=== PATIENT | male | born 1980 ===

== ENCOUNTER 2022-05-14 05:59 | Day surgery (SDC) | payer BC, OTHER ==
[2022-05-12 11:51] LABS: Absolute Lymphocytes (CBC) 2.1 K/uL (0.7-4.9); Hematocrit 48.2 % (39.6-49.0); Lymphocytes % 31.9 % (15.3-44.8); MCV 92.6 fL (80-100); MPV 8.5 fL (7.6-11.3)
[2022-05-12 12:06] LABS: Potassium 4.4 mmol/L (3.5-5.1)
[2022-05-12 12:11] LABS: SARS-CoV-2 Antigen Rapid Res Negative (Negative)
[2022-05-14] MEDS ORDERED: CEFAZOLIN SODIUM 1 GM/VIAL ONE (06:19)
[2022-05-14] MEDS ORDERED: NA CHLORIDE 0.9% 50 ML ONE (06:19)
[2022-05-14] MEDS: Ringers Lactate 1,000 ML IV ONE (06:30)
[2022-05-14] MEDS ORDERED: ACETAMINOPHEN 500 MG TAB ONE (06:32)
[2022-05-14] MEDS ORDERED: CELECOXIB 100 MG CAPSULE ONE (06:32)
[2022-05-14] MEDS ORDERED: propofoL 200 MG/20 ML VIAL IV ONE ×2 (07:03→07:16)
[2022-05-14] MEDS ORDERED: MIDAZOLAM HCL 2 MG/2 ML INJ ONE (07:03)
[2022-05-14] MEDS ORDERED: FENTANYL CITR 100 MCG/2 ML ONE (07:03)
[2022-05-14] MEDS ORDERED: LIDOCAINE 2% MPF 5 ML VIAL ONE (07:03)
[2022-05-14] MEDS ORDERED: ONDANSETRON 4 MG/2 ML VIAL ONE (07:03)
[2022-05-14] MEDS ORDERED: dexAMETHasone 10 MG/ML VIAL ONE (07:25)
[2022-05-14 08:10] VITALS: O2SAT 100
[2022-05-14] MEDS ORDERED: HYDROCODONE/APAP 7.5/325 MG TAB ONE (08:50)
[2022-05-14 08:52] VITALS: BP 131/87; TEMP 97.6
--- NOTE | 2022-05-14 09:26 | OP ---
Date of Procedure: 05/14/2022 Surgeon: Jacques Allen MD Preoperative Diagnosis: Left carpal tunnel syndrome with left third trigger digit. Postoperative Diagnosis: Left carpal tunnel syndrome with left third trigger digit. Procedure: Left open carpal tunnel release with left open trigger digit release of the third digit. Estimated Blood Loss: Less than 3 cc. Complications: No complications. Pathology: No pathology specimen sent. Indications For Operation: Mr. Ye arrived to see me with severe numbness, tingling, and pain rel ated to his hand. He also exhibited a triggering digit of the third finger. Risks, benefits, and al ternatives of different methods of treating this have been discussed with him and he does have NCVs w hich support carpal tunnel syndrome and he agrees to proceed. Description Of Procedure: Patient was taken to the operating room and placed in the supine position. General anesthesia was obtained by staff. Following this, a well-padded tourniquet was placed on s uperior left arm. The left upper extremity was then prepped and draped in the usual sterile fashion for procedure. Following this, the arm was then elevated, but not exsanguinated. Tourniquet was cage sed. Attention was first turned to the third trigger digit where slightly distal to the distal white r crease, a transverse incision made carefully through skin. Only meticulous hemostasis being mainta ined using bipolar electrocautery. This was then spread gently bluntly until the A1 karishma was ident ified. This was then divided with good visualization of the underlying tendon. It was then progress ed from proximal to distal until no constricting bands. Then, distal to proximal until no constricti ng bands. This was double-checked using a mosquito and the finger was brought through full range of motion with no sign of triggering or abnormal tendon motion. After this incision was closed, attenti on was then turned to the carpal tunnel. A standard incision was made, which was parallel to the the mandeep crease with slight ulnar deviation at the wrist crease. This was taken down carefully through sk in, only meticulous hemostasis being maintained using Bovie electrocautery. This leads to the palmar fascia, which was divided longitudinally. Any obstructions over the transverse carpal ligament were then swept to the side and a small vijaya was made in the transverse carpal ligament. The underlying median nerve was identified and this was then divided in a proximal to distal direction until there w ere no constricting bands and then a distal to proximal direction until there were no constricting ba nds including a significant amount of volar forearm fascia. At no time were any sharp instruments pl aced outside the direct operative field. This was then irrigated and closed. Patient was placed in a well-padded sterile dressing, awakened to the recovery room in good condition. No complications. /LUCY Voice ID: [id number] Report ID: [id number]
== END 2022-05-14 09:40 | disposition home or self-care (01) ==
LOC: PRE 05:59
PROVIDERS: ATTEND Orthopaedic Surgery
PROC: 01N50ZZ Release Median Nerve, Open Approach (ICD-10-PCS; principal; 2022-05-14 07:00)
PROC: 0LN80ZZ Release Left Hand Tendon, Open Approach (ICD-10-PCS; 2022-05-14 07:00)
DX: G56.02 Carpal tunnel syndrome, left upper limb (principal); M65.332 Trigger finger, left middle finger; I10 Essential (primary) hypertension; F17.210 Nicotine dependence, cigarettes, uncomplicated; Z88.2 Allergy status to sulfonamides; Z88.6 Allergy status to analgesic agent; Z20.822 Contact with and (suspected) exposure to COVID-19; Z82.49 Family history of ischemic heart disease and other diseases of the circulatory system; Z83.3 Family history of diabetes mellitus
CPT/HCPCS: 85025; 80048; 36415; 87811; 64721; 26055; J2704; J2250; J3010; J1100; J7120; J2405; J0690